=== PATIENT | female | born 1945 | race American Indian/Alaskan Native ===

== ENCOUNTER 2017-11-03 22:38 | Emergency (ER) | payer OTHER ==
[2017-11-03 23:21] VITALS: BP 174/80
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
[2017-11-04] MEDS ORDERED: TORADOL IM ONE (03:33)
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
== END 2017-11-04 04:09 | disposition home or self-care (01) ==
LOC: ED 22:38
DX: S09.90XA Unspecified injury of head, initial encounter (principal); S19.9XXA Unspecified injury of neck, initial encounter; Z91.018 Allergy to other foods; V87.7XXA Person injured in collision between other specified motor vehicles (traffic), initial encounter; Y93.89 Activity, other specified; Y99.8 Other external cause status; Y92.410 Unspecified street and highway as the place of occurrence of the external cause
CPT/HCPCS: 70450